=== PATIENT | male | born 1985 ===

== ENCOUNTER 2017-08-06 22:40 | Emergency (ER) | payer SELFPAY | END 2017-08-07 04:52 | disposition home or self-care (01) | LOC: E/R 22:40 | DX: F10.920 Alcohol use, unspecified with intoxication, uncomplicated (principal); R40.2352 Coma scale, best motor response, localizes pain, at arrival to emergency department; R51 Headache; R40.2132 Coma scale, eyes open, to sound, at arrival to emergency department; R40.2242 Coma scale, best verbal response, confused conversation, at arrival to emergency department | CPT/HCPCS: 70450; 80306; 99284-25 ==